=== PATIENT | male | born 1985 | race Caucasian/White ===

== ENCOUNTER 2017-11-02 03:14 | Emergency (ER) | payer OTHER | END 2017-11-02 03:56 | disposition home or self-care (01) | LOC: M ED 03:14 | DX: S80.222A Blister (nonthermal), left knee, initial encounter (principal); X58.XXXA Exposure to other specified factors, initial encounter; Y92.9 Unspecified place or not applicable; Y93.9 Activity, unspecified; Y99.9 Unspecified external cause status; Z79.899 Other long term (current) drug therapy | CPT/HCPCS: 99282 ==

== ENCOUNTER → 2019-10-03 | Outpatient (CLI) | payer OTHER ==
[~2019-10-03] MED LIST: ZYRT10CA PO
== END ==
LOC: M LABSMTC 12:33
PROVIDERS: ATTEND Family Medicine
DX: Z03.818 Encounter for observation for suspected exposure to other biological agents ruled out (principal); Z11.59 Encounter for screening for other viral diseases
CPT/HCPCS: C9803; U0003

== ENCOUNTER 2020-06-30 01:30 | Emergency (ER) | payer OTHER ==
[~2020-06-30] VITALS: Ht 167.6 cm; Wt 91.0 kg
--- OUTSIDE RECORDS SUMMARY | 2020-06-30 01:38 | CCD | Continuity of Care Document ---
Author Sy Conway M.D. Organization Unknown Address [address] [place] [address] Phone [phone] Problems Active Problems Provider Date Allergic rhinitis Irene Cueva RPA-[place] Onset: 2012 Social History Type Date Description Comments Sex Unknown Tobacco Use Start: Unknown Patient has never smoked Allergies, Adverse Reactions, Alerts Description No Known Drug Allergies Medications Active Medications SIG Qnty Indications Ordering Provide r Date Zyrtec Allergy 10mg Tablets take 1 by mouth daily....OTC 90tabs Juan Beyer D.O., FAAFP 01/22/2015 Flonase Allergy Relief 50mcg/Act Suspension 2 sprays each nares every day Unknown Saline Nasal [place] 0.65% Solution 2 spray each nostril twice a day OTC Unknown 0 000 Immunizations Description No Information Available Vital Signs Date Vital Result Comment 05/25/2020 1:47pm BP Systolic 124 mmHg BP Diastolic 80 mmHg Body Temperature 98.3 F Heart Rate 76 /min Respiratory Rate 14 /min Height 66 inches 5'6" Weight 210.00 lb [place] Body Weight 142 lb BMI (Body Mass Index) 33.9 kg/m2 O2 % BldC Oximetry 98 % 10/02/2019 11:37am BP Systolic 130 mmHg BP Diastolic 88 mmHg Body Temperature 98.0 F Heart Rate 92 /min Respiratory Rate 16 /min Height 66 inches 5'6" Weight 203.00 lb [place] Body Weight 142 lb BMI (Body Mass Index) 32.8 kg/m2 O2 % BldC Oximetry 99 % Results Test Acquired Date Facility Test Result H/L Range Note Metabolic Panel (14), Comprehensive 05/25/2020 [facility] [place] Glucose 91 mg/dL 65-99 BUN 13 mg/dL 6-20 Creatinine 1.07 mg/dL 0.76-1.27 eGFR If NonAfricn Am 90 mL/min/1.73 >59 eGFR If Africn Am 104 mL/min/1.73 >59 BUN/Creatinine Ratio 12 9-20 Sodium 143 mmol/L 134-144 Potassium 4.5 mmol/L 3.5-5.2 Chloride 106 mmol/L 96-106 Carbon Dioxide, Total 23 mmol/L 20-29 Calcium 9.9 mg/dL 8.7-10.2 Protein, Total 7.2 g/dL 6.0-8.5 Albumin 4.8 g/dL 4.0-5.0 Globulin, Total 2.4 g/dL 1.5-4.5 A/G Ratio 2.0 1.2-2.2 Bilirubin, Total 0.5 mg/dL 0.0-1.2 Alkaline Phosphatase 73 IU/L 39-117 Ast (Sgot) 52 IU/L High 0-40 Alt (SGPT) 119 IU/L High 0-44 Lipid Panel 05/25/2020 [facility] [place] Cholesterol, Total 189 mg/dL 100-199 Triglycerides 288 mg/dL High 0-149 HDL Cholesterol 32 mg/dL Low >39 VLDL Cholesterol [place] 50 mg/dL High 5-40 LDL Chol Calc (Nih) 107 mg/dL High 0-99 Comment: TNP Procedures Description No Information Available Medical Devices Description No Information Available Encounters Type Date Location Provider Dx Diagnosis Office Visit 05/25/2020 2:00p [place] [facility] Syed Saunders M. D. Z00.00 Encntr for general adult medical exam w/o abnormal findings R73.01 Impaired fasting glucose R74.01 Elevation of levels of liver transaminase levels J30.9 Allergic rhinitis, unspecifi ed Assessments Date Code Description Provider 05/25/2020 Z00.00 Encounter for genera l adult medical examination without abnormal findings Syed Saunders M.D. 05/25/2020 R73.01 Impaired fasting glucose Syed Ledesma M.D. 05/25/2020 R74.01 Elevation of levels of liver tra nsaminase levels Syed Saunders M.D. 05/25/2020 J30.9 Allergic rhinitis, unspecified M Syed mccloud M.D. Plan of Treatment Future Appointment(s):* 12/01/2020 1:00 pm - Syed Saunders M.D. at [facility] Functional Status Description No Information Available Mental Status Description No Information Available Referrals Description No Information Available
--- OUTSIDE RECORDS SUMMARY | 2020-06-30 01:39 | CCD ---
Author Organization Unknown Address [address] [place] [address] Phone [phone] Care Team Providers Care Core Drier Name Role Phone Refugio Olivera Unavailable Unavailable Allergies None recorded. Medications None recorded. Problems None recorded. Procedures None recorded. Results Lab Results Date Name Specimen Result Interpretation Description Value Range Status Address 03/30/2020 COVID-19 RNA (SARS-CoV-2), QL, scheduler maintenance-PCR, Respiratory Specimen Nasopharyngeal Normal Sars Cov 2 RNA not detected not detected Fi nal [facility] ([facility]): [address] 03/16/2020 COVID-19 RNA (SARS-CoV-2), QL, scheduler maintenance-PCR, Respiratory Specimen Nasopharyngeal Normal Sars Cov 2 RNA not detected not detected Fi nal [facility] ([facility]): [address] 03/02/2020 COVID-19 RNA (SARS-CoV-2), QL, scheduler maintenance-PCR, Respirat ory Specimen Normal Sars Cov 2 RNA not detected not detected Final Asso ciated Clinical Labs ([facility]): [address] Past Encounters 03/30/2020 Exposure to SARS-CoV-2 Refugio D Olivera, RPA-C: [address], [place] [address], Ph. 03/16/2020 Exposure to SARS-CoV-2 Refugio D Olivera, RPA-C: [address], [address], [place] [address], Ph. 03/02/2020 Exposure to SARS-CoV-2 Refugio D Olivera, RPA-C: [address], [address], [place] [address], Ph. Social History None recorded. Vaccine List None recorded. Plan of Care Reminders Provider Appointments None recorded. Lab None recorded. Referral None recorded. Procedures None recorded. Surgeries None recorded. Imaging None recorded. Vitals None recorded.
--- OUTSIDE RECORDS SUMMARY | 2020-06-30 01:39 | CCD | Continuity of Care Document ---
Author Author Sy SAUNDERS M.D. Organization Unknown Address [address] [place] [id number] Phone [phone] Problems Active Problems Provider Date Allergic rhinitis Irene Cueva RPA-C Onset: 2012 Social History Type Date Description [...] each nares every day Unknown Saline Nasal [place] 0.65% Solution 2 spray each nostril twice a day OTC Unknown 0 000 Immunizations Description No Information Available Vital Signs Date Vital Result Comment 05/25/2020 1:47pm BP Systolic 124 mmHg BP Diastolic 80 mmHg Body Temperature 98.3 F Heart Rate 76 /min Respiratory Rate 14 /min Height 66 inches 5'6" Weight 210.00 lb [place] Body Weight 142 lb BMI (Body Mass Index) 33.9 kg/m2 O2 % BldC Oximetry 98 % 10/02/2019 11:37am BP Systolic 130 mmHg BP Diastolic 88 mmHg Body Temperature 98.0 F Heart Rate 92 /min Respiratory Rate 16 /min Height 66 inches 5'6" Weight 203.00 lb [place] Body Weight 142 lb BMI (Body Mass Index) 32.8 kg/m2 O2 % BldC Oximetry 99 % Results Description No Information Available Procedures Description No Information Available Medical Devices Description No Information Available Encounters Type Date Location Provider Dx Diagnosis Office Visit 05/25/2020 2:00p [place] [facility] Syed Saunders M. D. Z00.00 Encntr [...] M Syed mccloud M.D. Plan of Treatment No Information Available Functional Status Description No Information Available Mental Status Description No Information Available Referrals Description No Information Available
--- OUTSIDE RECORDS SUMMARY | 2020-06-30 01:39 | CCD ---
Author Author [facility] Organization [facility] Address Unknown Phone Unavailable Care Team Providers Care Microsoft Exchange Administrator Name Role Phone OLIVERA, QUINTON REFUGIO RPA-C Unavailable Unavailable OLIVERA, QUINTON REFUGIO RPA-C Unavailable Unavailable OLIVERA, QUINTON REFUGIO RPA-C Unavailable Unavailable OLIVERA, QUINTON REFUGIO RPA-C Unavailable Unavailable OLIVERA, QUINTON REFUGIO RPA-C Unavailable Unavailable OLIVERA, QUINTON REFUGIO RPA-C Unavailable Unavailable OLIVERA, QUINTON REFUGIO RPA-C Unavailable Unavailable OLIVERA, QUINTON REFUGIO RPA-C Unavailable Unavailable OLIVERA, QUINTON REFUGIO RPA-C Unavailable Unavailable OLIVERA, QUINTON REFUGIO RPA-C Unavailable Unavailable OLIVERA, QUINTON REFUGIO RPA-C Unavailable Unavailable OLIVERA, QUINTON REFUGIO RPA-C Unavailable Unavailable OLIVERA, QUINTON REFUGIO RPA-C Unavailable Unavailable OLIVERA, QUINTON REFUGIO RPA-C Unavailable Unavailable OLIVERA, QUINTON REFUGIO RPA-C Unavailable Unavailable OLIVERA, QUINTON REFUGIO RPA-C Unavailable Unavailable OLIVERA, QUINTON REFUGIO RPA-C Unavailable Unavailable OLIVERA, QUINTON REFUGIO RPA-C Unavailable Unavailable OLIVERA, QUINTON REFUGIO RPA-C Unavailable Unavailable OLIVERA, QUINTON RFEUGIO RPA-C Unavailable Unavailable OLIVERA, QUINTON REFUGIO RPA-C Unavailable Unavailable OLIVERA, QUINTON REFUGIO RPA-C Unavailable Unavailable OLIVERA, QUINTON REFUGIO RPA-C Unavailable Unavailable OLIVERA, QUINTON REFUGIO RPA-C Unavailable Unavailable OLIVERA, QUINTON REFUGIO RPA-C Unavailable Unavailable OLIVERA, QUINTON REFUGIO RPA-C Unavailable Unavailable OLIVERA, QUINTON REFUGIO RPA-C Unavailable Unavailable OLIVERA, QUINTON REFUGIO RPA-C Unavailable Unavailable OLIVERA, QUINTON REFUGIO RPA-C Unavailable Unavailable OLIVERA, QUINTON REFUGIO RPA-C Unavailable Unavailable OLIVERA, QUINTON REFUGIO RPA-C Unavailable Unavailable OLIVERA, QUINTON REFUGIO RPA-C Unavailable Unavailable OLIVERA, QUINTON REFUGIO RPA-C Unavailable Unavailable OLIVERA, QUINTON REFUGIO RPA-C Unavailable Unavailable OLIVERA, QUINTON REFUGIO RPA-C Unavailable Unavailable OLIVERA, QUINTON REFUGIO RPA-C Unavailable Unavailable OLIVERA, QUINTON REFUGIO RPA-C Unavailable Unavailable OLIVERA, QUINTON REFUGIO RPA-C Unavailable Unavailable OLIVERA, QUINTON REFUGIO RPA-C Unavailable Unavailable Herve YUN MD Unavailable Unavailable Herve YUN MD Unavailable Unavailable Herve YUN MD Unavailable Unavailable Herve YUN MD Unavailable Unavailable Herve YUN MD Unavailable Unavailable Herve YUN MD Unavailable Unavailable Herve YUN MD Unavailable Unavailable Herve YUN MD Unavailable Unavailable Herve YUN MD Unavailable Unavailable Herve YUN MD Unavailable Unavailable Herve YUN MD Unavailable Unavailable Herve YUN MD Unavailable Unavailable Herve YUN MD Unavailable Unavailable Herve YUN MD Unavailable Unavailable Herve YUN MD Unavailable Unavailable Herve YUN MD Unavailable Unavailable Herve YUN MD Unavailable Unavailable Herve YUN MD Unavailable Unavailable Herve YUN MD Unavailable Unavailable Herve YUN MD Unavailable Unavailable Herve YUN MD Unavailable Unavailable Herve YUN MD Unavailable Unavailable Herve YUN MD Unavailable Unavailable Herve YUN MD Unavailable Unavailable Herve YUN MD Unavailable Unavailable Herve YUN MD Unavailable Unavailable Herve YUN MD Unavailable Unavailable Herve YUN MD Unavailable Unavailable Herve YUN MD Unavailable Unavailable Herve YUN MD Unavailable Unavailable Herve YUN MD Unavailable Unavailable Herve YUN MD Unavailable Unavailable Herve YUN MD Unavailable Unavailable Herve YUN MD Unavailable Unavailable Herve YUN MD Unavailable Unavailable Herve YUN MD Unavailable Unavailable Herve YUN MD Unavailable Unavailable Herve YUN MD Unavailable Unavailable Herve YUN MD Unavailable Unavailable Herve YUN MD Unavailable Unavailable Herve YUN MD Unavailable Unavailable Herve YUN MD Unavailable Unavailable Herve YUN MD Unavailable Unavailable Herve YUN MD Unavailable Unavailable Herve YUN MD Unavailable Unavailable Herve YUN MD Unavailable Unavailable Herve YUN MD Unavailable Unavailable Herve YUN MD Unavailable Unavailable Herve YUN MD Unavailable Unavailable Herve YUN MD Unavailable Unavailable Herve YUN MD Unavailable Unavailable Herve YUN MD Unavailable Unavailable Herve YUN MD Unavailable Unavailable Herve YUN MD Unavailable Unavailable Herve YUN MD Unavailable Unavailable Herve YUN MD Unavailable Unavailable Herve YUN MD Unavailable Unavailable Herve YUN MD Unavailable Unavailable Herve YUN MD Unavailable Unavailable Herve YUN MD Unavailable Unavailable Herve YUN MD Unavailable Unavailable Herve YUN MD Unavailable Unavailable Herve YUN MD Unavailable Unavailable Herve YUN MD Unavailable Unavailable Herve YUN MD Unavailable Unavailable Herve YUN MD Unavailable Unavailable Herve YUN MD Unavailable Unavailable Herve YUN MD Unavailable Unavailable Herve YUN MD Unavailable Unavailable Herve YUN MD Unavailable Unavailable Herve YUN MD Unavailable Unavailable Herve YUN MD Unavailable Unavailable Herve YUN MD Unavailable Unavailable Herve YUN MD Unavailable Unavailable Herve YUN MD Unavailable Unavailable Herve YUN MD Unavailable Unavailable Whitney, D Vladimir PA Unavailable Unavailable Whitney, D Vladimir PA Unavailable Unavailable Whitney, D Vladimir PA Unavailable Unavailable Whitney, D Vladimir PA Unavailable Unavailable Whitney, D Vladimir PA Unavailable Unavailable Whitney, D Vladimir PA Unavailable Unavailable Whitney, D Vladimir PA Unavailable Unavailable Whitney, D Vladimir PA Unavailable Unavailable Whitney, D Vladimir PA Unavailable Unavailable Whitney, D Vladimir PA Unavailable Unavailable Whitney, D Vladimir PA Unavailable Unavailable Whitney, D Vladimir PA Unavailable Unavailable Whitney, D Vladimir PA Unavailable Unavailable Whitney, D Vladimir PA Unavailable Unavailable Whitney, D Vladimir PA Unavailable Unavailable Whitney, D Vladimir PA Unavailable Unavailable Whitney, D Vladimir PA Unavailable Unavailable Whitney, D Vladimir PA Unavailable Unavailable Whitney, D Vladimir PA Unavailable Unavailable Whitney, D Vladimir PA Unavailable Unavailable Whitney, D Vladimir PA Unavailable Unavailable Whitney, D Vladimir PA Unavailable Unavailable Whitney, D Vladimir PA Unavailable Unavailable Whitney, D Vladimir PA Unavailable Unavailable Whitney, D Vladimir PA Unavailable Unavailable Whitney, D Vladimir PA Unavailable Unavailable Whitney, D Vladimir PA Unavailable Unavailable Whitney, D Vladimir PA Unavailable Unavailable Whitney, D Vladimir PA Unavailable Unavailable Whitney, D Vladimir PA Unavailable Unavailable Whitney, D Vladimir PA Unavailable Unavailable Whitney, D Vladimir PA Unavailable Unavailable Whitney, D Vladimir PA Unavailable Unavailable Whitney, D Vladimir PA Unavailable Unavailable Whitney, D Vladimir PA Unavailable Unavailable Whitney, D Vladimir PA Unavailable Unavailable Whitney, D Vladimir PA Unavailable Unavailable Whitney, D Vladimir PA Unavailable Unavailable Whitney, D Vladimir PA Unavailable Unavailable Whitney, D Vladimir PA Unavailable Unavailable Whitney, D Vladimir PA Unavailable Unavailable Whitney, D Vladimir PA Unavailable Unavailable Whitney, D Vladimir PA Unavailable Unavailable Whitney, D Vladimir PA Unavailable Unavailable Whitney, D Vladimir PA Unavailable Unavailable Whitney, D Vladimir PA Unavailable Unavailable Whitney, D Vladimir PA Unavailable Unavailable Whitney, D Vladimir PA Unavailable Unavailable Whitney, D Vladimir PA Unavailable Unavailable Whitney, D Vladimir PA Unavailable Unavailable Whitney, D Vladimir PA Unavailable Unavailable Whitney, D Vladimir PA Unavailable Unavailable Whitney, D Vladimir PA Unavailable Unavailable Whitney, D Vladimir PA Unavailable Unavailable Whitney, D Vladimir PA Unavailable Unavailable Whitney, D Vladimir PA Unavailable Unavailable Whitney, D Vladimir PA Unavailable Unavailable Whitney, D Vladimir PA Unavailable Unavailable Whitney, D Vladimir PA Unavailable Unavailable Whitney, D Vladimir PA Unavailable Unavailable Whitney, D Vladimir PA Unavailable Unavailable Whitney, D Vladimir PA Unavailable Unavailable Whitney, D Vladimir PA Unavailable Unavailable Enedina Meyer MD Unavailable Unavailable Enedina Meyer MD Unavailable Unavailable Enedina Meyer MD Unavailable Unavailable Enedina Meyer MD Unavailable Unavailable Enedina Meyer MD Unavailable Unavailable Enedina Meyer MD Unavailable Unavailable Enedina Meyer MD Unavailable Unavailable Enedina Meyer MD Unavailable Unavailable Enedina Meyer MD Unavailable Unavailable Enedina Meyer MD Unavailable Unavailable Enedina Meyer MD Unavailable Unavailable Enedina Meyer MD Unavailable Unavailable Enedina Meyer MD Unavailable Unavailable Enedina Meyer MD Unavailable Unavailable Enedina Meyer MD Unavailable Unavailable Enedina Meyer MD Unavailable Unavailable Enedina Meyer MD Unavailable Unavailable Enedina Meyer MD Unavailable Unavailable Enedina Meyer MD Unavailable Unavailable Enedina Meyer MD Unavailable Unavailable Enedina Meyer MD Unavailable Unavailable Enedina Meyer MD Unavailable Unavailable Enedina Meyer MD Unavailable Unavailable Enedina Meyer MD Unavailable Unavailable Enedina Meyer MD Unavailable Unavailable Enedina Meyer MD Unavailable Unavailable Enedina Meyer MD Unavailable Unavailable Enedina Meyer MD Unavailable Unavailable Enedina Meyer MD Unavailable Unavailable Enedina Meyer MD Unavailable Unavailable Enedina Meyer MD Unavailable Unavailable Enedina Meyer MD Unavailable Unavailable Enedina Meyer MD Unavailable Unavailable Enedina Meyer MD Unavailable Unavailable Enedina Meyer MD Unavailable Unavailable Enedina Meyer MD Unavailable Unavailable Enedina Meyer MD Unavailable Unavailable Enedina Meyer MD Unavailable Unavailable Enedina Meyer MD Unavailable Unavailable Enedina Meyer MD Unavailable Unavailable Enedina Meyer MD Unavailable Unavailable Enedina Meyer MD Unavailable Unavailable Enedina Meyer MD Unavailable Unavailable Enedina Meyer MD Unavailable Unavailable Enedina Meyer MD Unavailable Unavailable Enedina Meyer MD Unavailable Unavailable Enedina Meyer MD Unavailable Unavailable Enedina Meyer MD Unavailable Unavailable Enedina Meyer MD Unavailable Unavailable Enedina Meyer MD Unavailable Unavailable Enedina Meyer MD Unavailable Unavailable Enedina Meyer MD Unavailable Unavailable Meyer, Enedina Lynch MD Unavailable Unavailable Enedina Meyer MD Unavailable Unavailable MeyerEnedina MD Unavailable Unavailable Enedina Meyer MD Unavailable Unavailable Enedina Meyer MD Unavailable Unavailable Enedina Meyer MD Unavailable Unavailable Enedina Meyer MD Unavailable Unavailable Enedina Meyer MD Unavailable Unavailable Enedina Meyer MD Unavailable Unavailable Enedina Meyer MD Unavailable Unavailable Enedina Meyer MD Unavailable Unavailable Enedina Meyer MD Unavailable Unavailable Enedina Meyer MD Unavailable Unavailable Enedina Meyer MD Unavailable Unavailable Enedina Meyer MD Unavailable Unavailable Enedina Meyer MD Unavailable Unavailable Enedina Meyer MD Unavailable Unavailable Enedina Meyer MD Unavailable Unavailable Enedina Meyer MD Unavailable Unavailable Enedina Meyer MD Unavailable Unavailable Enedina Meyer MD Unavailable Unavailable Enedina Meyer MD Unavailable Unavailable Enedina Meyer MD Unavailable Unavailable Enedina Meyer MD Unavailable Unavailable Enedina Meyer MD Unavailable Unavailable Enedina Meyer MD Unavailable Unavailable Enedina Meyer MD Unavailable Unavailable Enedina Meyer MD Unavailable Unavailable Enedina Meyer MD Unavailable Unavailable Enedina Meyer MD Unavailable Unavailable Enedina Meyer MD Unavailable Unavailable Enedina Meyer MD Unavailable Unavailable Enedina Meyer MD Unavailable Unavailable Enedina Meyer MD Unavailable Unavailable Enedina Meyer MD Unavailable Unavailable Enedina Meyer MD Unavailable Unavailable Enedina Meyer MD Unavailable Unavailable Verbeck Jr, Uinta Raad PA Unavailable Unavailable Verbeck Jr, Uinta Raad PA Unavailable Unavailable Verbeck Jr, Uinta Raad PA Unavailable Unavailable Verbeck Jr, Uinta Raad PA Unavailable Unavailable Verbeck Jr, Rey Raad PA Unavailable Unavailable Verbeck Jr, Uinta Raad PA Unavailable Unavailable Verbeck Jr, Uinta Raad PA Unavailable Unavailable Verbeck Jr, Uinta Raad PA Unavailable Unavailable Verbeck Jr, Uinta Raad PA Unavailable Unavailable Verbeck Jr, Uinta Raad PA Unavailable Unavailable Verbeck Jr, Uinta Raad PA Unavailable Unavailable Verbeck Jr, Uinta Raad PA Unavailable Unavailable Verbeck Jr, Uinta Raad PA Unavailable Unavailable Verbeck Jr, Rey Raad PA Unavailable Unavailable Verbeck Jr, Uinta Raad PA Unavailable Unavailable Verbeck Jr, Rey Raad PA Unavailable Unavailable Verbeck Jr, Rey Raad PA Unavailable Unavailable Verbeck Jr, Rey Raad PA Unavailable Unavailable Verbeck Jr, Uinta Raad PA Unavailable Unavailable Verbeck Jr, Uinta Raad PA Unavailable Unavailable Verbeck Jr, Rey Raad PA Unavailable Unavailable Verbeck Jr, Uinta Raad PA Unavailable Unavailable Verbeck Jr, Uinta Raad PA Unavailable Unavailable Verbeck Jr, Uinta Raad PA Unavailable Unavailable Verbeck Jr, Uinta Raad PA Unavailable Unavailable Verbeck Jr, Uinta Raad PA Unavailable Unavailable Verbeck Jr, Uinta Raad PA Unavailable Unavailable Verbeck Jr, Uinta Raad PA Unavailable Unavailable Verbeck Jr, Uinta Raad PA Unavailable Unavailable Verbeck Jr, Uinta Raad PA Unavailable Unavailable Verbeck Jr, Uinta Raad PA Unavailable Unavailable Verbeck Jr, Uinta Raad PA Unavailable Unavailable Verbeck Jr, Uinta Raad PA Unavailable Unavailable Verbeck Jr, Uinta Raad PA Unavailable Unavailable Re-disclosure Warning The records that you are about to access may contain information from federally-assisted alcohol or drug abuse programs. If such information is present, then the following federally mandated warning applies: This information has been disclosed to you from records protected by federal confidentiality rules (42 CFR part 2). The federal rules prohibit you from making any further disclosure of this information unless further disclosure is expressly permitted by the written consent of the person to whom it pertains or as otherwise permitted by 42 CFR part 2. A general authorization for the release of medical or other information is NOT sufficient for this purpose. The Federal rules restrict any use of the information to criminally investigate or prosecute any alcohol or drug abuse patient.The records that you are about to access may contain highly sensitive health information, the redisclosure of which is protected by Article 27-F of the [place] State Public Health law. If you continue you may have access to information: Regarding HIV / AIDS; Provided by facilities licensed or operated by the [facility] Office of Mental Health; or Provided by the [facility] Office for People With Developmental Disabilities. If such information is present, then the following [facility] mandated warning applies: This information has been disclosed to you from confidential records which are protected by state law. State law prohibits you from making any further disclosure of this information without the specific written consent of the person to whom it pertains, or as otherwise permitted by law. Any unauthorized further disclosure in violation of state law may result in a fine or fdc sentence or both. A general authorization for the release of medical or other information is NOT sufficient authorization for further disc losure. Allergies and Adverse Reactions Type Description Substance Reaction Status Data Source(s ) Allergy to substance Allergy to substance Allergy to substance [facility] ([facility]) Allergy to substance Allergy to substance Allergy to substance [facility] ([facility]) Allergy to substance Allergy to substance Allergy to substance [facility] ([facility]) Family History Family Member Name Family Member Gender Family Member Status Date o f Status Description Data Source(s) Unknown Unknown Problem [facility] ([facility] Unknown Unknown Problem [facility] ([facility]) mother/father Encounters Encounter Providers Location Date Indications Data Source(s ) Outpatient Attender: SYED YUN MD [place] [facility] 01:00:00 PM EST [facility] ([facility] Refugio Olivera RPA-C: [address], [place] [address], Ph. Attender: REFUGIO SCHULTZ [facility] Medical 03/30/2020 12:00:00 AM EST [facility] ([facility]) TORY McmahanC: [address], [place] [address], Ph. Attender: REFUGIO SCHULTZ [facility] Medical 03/30/2020 12:00:00 AM EST [facility] ([facility]) Refugio Olivera RPA-C: [address], [place] [address], Ph. Attender: REFUGIO SCHULTZ [facility] Medical 03/16/2020 12:00:00 AM EST [facility] ([facility]) Refugio Olivera, RPA-C: [address], [place] [address], Ph. Attender: REFUGIO OLIVERA RPA-C [facility] Medical 03/16/2020 12:00:00 AM EST [facility] ([facility]) Refugio Olivera RPA-C: [address], [place] [address], Ph. Attender: REFUGIO OLIVERA RPA-C [facility] Medical 03/16/2020 12:00:00 AM EST [facility] ([facility]) Refugio Olivera RPA-C: [address], [place] [address], Ph. Attender: REFUGIO OLIVERA RPA-C [facility] Medical 03/02/2020 12:00:00 AM EDT [facility] ([facility]) Refugio Olivera RPA-C: [address], [place] [address], Ph. Attender: REFUGIO OLIVERA RPA-C [facility] Medical 03/02/2020 12:00:00 AM EDT [facility] ([facility]) Refugio Olivera, RPA-C: [address], [place] [address], Ph. Attender: REFUGIO OLIVERA RPA-C [facility] Medical 03/02/2020 12:00:00 AM EDT [facility] ([facility]) Outpatient Attender: Syed Meyer MD CT 02/18/2020 02:59:[address] [facility] Outpatient Attender: Syed Meyer MD CT 01/31/2020 05:06:[address] [facility] Outpatient Attender: Syed Meyer MD CT 01/31/2020 10:20:[address] [facility] Outpatient Attender: Syed Meyer MD CT 01/31/2020 10:20:[address] [facility] Outpatient Attender: Vladimir SCHILLING [place] [facility] 11:30:00 AM EDT MED[facility] ([facility] Outpatient Attender: Raad Mays Jr [place] [facility] 03:00:00 PM EST [facility] ([facility] Medications Medication Brand Name Start Date Product Form Dose Route Admi nistrative Instructions Pharmacy Instructions Status Indications Reaction Description Data Source(s) Cefuroxime 500 MG Oral Tablet Cefuroxime Axetil 05/07/2019 12:00:00 A M EST ORAL completed [facility] ([facility] Azelastine HCL (Nasal) Azelastine HCL (Nasal) 05/07/2019 12:00:[address] active [facility] ([facility] Insurance Providers Payer name Policy type / Coverage type Policy ID Covered libertarian ID Covered libertarian's relationship to aparicio Policy Aparicio Plan Information [facility] [id number] SP [id number] [employer] [id number] SP [id number] [facility] MEDICAL CLAIMS [id number] SP [id number] Lifetime Benefit Solution Commercial [id number] Self [id number] Lifetime Benefit Solution Commercial [id number] Self [id number] Lifetime Benefit Solution Commercial Self Problems, Conditions, and Diagnoses Code Display Name Description Problem Type Effective Dates Data Source(s) V01.79 Contact with and (suspected) exposure to other viral communicable diseases Contact with and (suspected) exposure to other viral communicable diseases 01/31/2020 10:19:[address] [facility] Results ID Date Data Source [id number] 05/25/2020 02:06:00 PM EST [facility] ([facility] Name Value Range Interpretation Code Description Data Annamaria rce(s) Supporting Document(s) Cholesterol [Mass/volume] in Serum or Plasma 189 mg/dL 100-199 [facility] ([facility] Triglyceride [Mass/volume] in Serum or Plasma 288 mg/dL 0-149 Above high normal [facility] ([facility] Cholesterol in HDL [Mass/volume] in Serum or Plasma 32 mg/dL Below low normal [facility] ([facility] Laboratory test finding (navigational concept) 50 mg/dL 5-40 Above high normal [facility] ([facility] Laboratory test finding (navigational concept) 107 mg/dL 0-99 Above high normal [facility] ([facility] Comment: Laboratory test result [facility] ([facility] ID Date Data Source [id number] 05/25/2020 02:06:00 PM EST [facility] ([facility] Name Value Range Interpretation Code Description Data Annamaria rce(s) Supporting Document(s) Glucose [Mass/volume] in Serum or Plasma 91 mg/dL 65-99 [facility] ([facility] BUN 13 mg/dL 6-20 [facility] ([facility] Creatinine [Mass/volume] in Serum or Plasma 1.07 mg/dL 0.76-1.27 [facility] ([facility] eGFR If NonAfricn Am 90 mL/min/1.73 [facility] ([facility] eGFR If Africn Am 104 mL/min/1.73 ME DENT ([facility] Sodium [Moles/volume] in Serum or Plasma 143 mmol/L 134-144 [facility] ([facility] Urea nitrogen/Creatinine [Mass Ratio] in Serum or Plasma 12 9 -20 [facility] ([facility] Potassium [Moles/volume] in Serum or Plasma 4.5 mmol/L 3.5-5.2 [facility] ([facility] Chloride [Moles/volume] in Serum or Plasma 106 mmol/L 96-106 [facility] ([facility] Calcium [Mass/volume] in Serum or Plasma 9.9 mg/dL 8.7-10.2 [facility] ([facility] Carbon dioxide, total [Moles/volume] in Serum or Plasma 23 mmol/L 20 -29 [facility] ([facility] Protein [Mass/volume] in Serum or Plasma 7.2 g/dL 6.0-8.5 [facility] ([facility] Globulin [Mass/volume] in Serum by calculation 2.4 g/dL 1.5-4.5 [facility] ([facility] Albumin [Mass/volume] in Serum or Plasma 4.8 g/dL 4.0-5.0 [facility] ([facility] Albumin/Globulin [Mass Ratio] in Serum or Plasma 2.0 1.2-2.2 [facility] ([facility] Alkaline phosphatase [Enzymatic activity/volume] in Serum or Plasma 73 IU/L 39-117 [facility] Bilirubin.total [Mass/volume] in Serum or Plasma 0.5 mg/dL 0.0-1.2 [facility] ([facility] Aspartate aminotransferase [Enzymatic activity/volume] in Serum or Plasma 52 IU/L 0-40 Above high normal [facility] ([facility] Alanine aminotransferase [Enzymatic activity/volume] i n Serum or Plasma 119 IU/L 0-44 Above high normal [facility] ([facility] ID Date Data Source [id number] 03/30/2020 02:00:00 PM EST J[facility] ([facility]) Name Value Range Interpretation Code Description Data Annamaria rce(s) Supporting Document(s) SARS-CoV-2 (COVID-19) RNA [Presence] in Respiratory specimen by ALECIA with probe detection not detected not detected normal Sars Cov 2 RNA [facility] ([facility]) ID Date Data Source [id number] 03/16/2020 02:00:00 PM EST [facility] ([facility]) Name Value Range Interpretation Code Description Data Annamaria rce(s) Supporting Document(s) SARS-CoV-2 (COVID-19) RNA [Presence] in Respiratory specimen by ALECIA with probe detection not detected not detected normal Sars Cov 2 RNA [place] ([facility]) ID Date Data Source [id number] 03/16/2020 02:00:00 PM EST [place] ([facility]) Name Value Range Interpretation Code Description Data Annamaria rce(s) Supporting Document(s) SARS coronavirus 2 RNA [Presence] in Res piratory specimen by ALECIA with probe detection not detected not detected normal Sars Cov 2 RNA [place] ([facility]) ID Date Data Source [id number] 03/16/2020 02:00:00 PM EST [place] ([facility]) Name Value Range Interpretation Code Description Data Annamaria rce(s) Supporting Document(s) SARS coronavirus 2 RNA [Presence] in Res piratory specimen by ALECIA with probe detection not detected not detected normal Sars Cov 2 RNA [facility]) ID Date Data Source [id number] 03/02/2020 02:10:00 PM EDT [facility]) Name Value Range Interpretation Code Description Data Annamaria rce(s) Supporting Document(s) SARS-CoV-2 (COVID-19) RNA [Presence] in Respiratory specimen by ALECIA with probe detection not detected not detected normal Sars Cov 2 RNA [facility]) ID Date Data Source [id number] 03/02/2020 02:10:00 PM EDT [facility]) Name Value Range Interpretation Code Description Data Annamaria rce(s) Supporting Document(s) SARS coronavirus 2 RNA [Presence] in Res piratory specimen by ALECIA with probe detection not detected not detected normal Sars Cov 2 RNA [place] ([facility]) ID Date Data Source [id number] 03/02/2020 02:10:00 PM EDT [facility]) Name Value Range Interpretation Code Description Data Annamaria rce(s) Supporting Document(s) SARS coronavirus 2 RNA [Presence] in Res piratory specimen by ALECIA with probe detection not detected not detected normal Sars Cov 2 RNA [place] ([facility]) ID Date Data Source [id number] 03/02/2020 02:10:00 PM EDT [facility] Name Value Range Interpretation Code Description Data Annamaria rce(s) Supporting Document(s) SARS-COV-2 RNA RESP QL ALECIA+PROBE [facility] This lab was ordered by [facility] and reported by [facility]. ID Date Data Source [id number] 02/17/2020 02:15:[address] [facility] In-House Lab TestsDate/Time Collect ed: February 17, 2020 2:15 PMDate/Time Received: February 17, 2020 2:15 PMComments: COVID-19 testing done in office taken from the right nostril without difficulty. Patient tolerated it well. Serene Jett MA, February 17, 2020 2:05 PMAssessment & Plan Orders:Specimen Handling [[id number]] Name Value Range Interpretation Code Description Data Annamaria rce(s) Supporting Document(s) ID Date Data Source [id number] 02/17/2020 12:00:00 AM EDT [facility] Name Value Range Interpretation Code Description Data Annamaria rce(s) Supporting Document(s) SARS-COV-2 RNA RESP QL ALECIA+PROBE [facility] This lab was ordered by [facility] and reported by [facility]. ID Date Data Source [id number] 01/31/2020 02:00:00 PM EDT [facility] Name Value Range Interpretation Code Description Data Annamaria rce(s) Supporting Document(s) SARS-COV-2 RNA RESP QL ALECIA+PROBE [facility] This lab was ordered by [facility] and reported by [facility]. ID Date Data Source [id number] 10/03/2019 03:55:00 PM EDT [facility] Name Value Range Interpretation Code Description Data Annamaria rce(s) Supporting Document(s) SARS CORONAVIRUS 2 RNA [facility] This lab was ordered by [facility] and reported by [facility]. ID Date Data Source [id number] 10/03/2019 02:24:00 PM EDT [facility] ([facility] Name Value Range Interpretation Code Description Data Annamaria rce(s) Supporting Document(s) Laboratory test finding (navigational concept) Laboratory test result [facility] ([facility] Testing was performed using the stephania(R) SARS-CoV-2 test. This test was developed and its performance characteristics determined by [facility]. This test has not been FDA cleared or approved. This test has been authorized by FDA under an Emergency Use Authorization (EUA). This test is only authorized for the duration of time the declaration that circumstances exist justifying the authorization of the emergency use of in vitro diagnostic tests for detection of SARS-CoV-2 virus and/or diagnosis of COVID-19 infection under section 564(b)(1) of the Act, 21 U.S.C. 360bbb-3(b)(1), unless the authorization is terminated or revoked sooner. When diagnostic testing is negative, the possibility of a false negative result should be considered in the context of a patient's recent exposures and the presence of clinical signs and symptoms consistent with COVID-19. An individual without symptoms of COVID-19 and who is not shedding SARS-CoV-2 virus would expect to have a negative (not detected) result in this assay. Performed at: [facility] [id number] [employer] Delivery Consultant: Hansa Mccann MD, Phone: [phone] Not Detected Procedure Vital Signs ID Date Data Source UNK Name Value Range Interpretation Code Description Data Source(s) Oxygen saturation in Arterial blood by Pulse oximetry 98 % 98 % [facility] ([facility] Body mass index (BMI) [Ratio] 33.9 kg/m2 33.9 k g/m2 MEDK[facility]UDIA ([facility] [place] body weight 142 [lb_av] 142 [lb_av] MEDEN T ([facility] Body weight 210.00 [lb_av] 210.00 [lb_av] MEDEN T ([facility] Body height 66 [in_i] 66 [in_i] [facility] ([facility] 5'6" Respiratory rate 14 /min 14 /min [facility] ( [facility] Heart rate 76 /min 76 /min [facility] ([facility] Body temperature 98.3 [degF] 98.3 [degF] [facility] ([facility] Diastolic blood pressure 80 mm[Hg] 80 mm[Hg] [facility] ([facility] Systolic blood pressure 124 mm[Hg] 124 mm[Hg] M EDENT ([facility] Oxygen saturation in Arterial blood by Pulse oximetry 99 % 99 % [facility] ([facility] Body mass index (BMI) [Ratio] 32.8 kg/m2 32.8 k g/m2 [facility] ([facility] [place] body weight 142 [lb_av] 142 [lb_av] MEDEN T ([facility] Body weight 203.00 [lb_av] 203.00 [lb_av] MEDEN T ([facility] Body height 66 [in_i] 66 [in_i] MED[facility] ([facility] 5'6" Respiratory rate 16 /min 16 /min [facility] ( [facility] Heart rate 92 /min 92 /min [facility] ([facility] Body temperature 98.0 [degF] 98.0 [degF] [facility] ([facility] Diastolic blood pressure 88 mm[Hg] 88 mm[Hg] [facility] ([facility] Systolic blood pressure 130 mm[Hg] 130 mm[Hg] M EDENT ([facility] Oxygen saturation in Arterial blood by Pulse oximetry 97 % 97 % [facility] ([facility] Body mass index (BMI) [Ratio] 32.2 kg/m2 32.2 k g/m2 MEDKLAUDIA ([facility] Body weight 199.38 [lb_av] 199.38 [lb_av] ANTHONYEN T ([facility] Body height 66 [in_i] 66 [in_i] MEDKLAUDIA ([facility] 5'6" Respiratory rate 16 /min 16 /min ROSA ( [facility] Heart rate 94 /min 94 /min ROSA ([facility] Body temperature 98.7 [degF] 98.7 [degF] ROSA ([facility] Diastolic blood pressure 84 mm[Hg] 84 mm[Hg] ROSA ([facility] Systolic blood pressure 114 mm[Hg] 114 mm[Hg] Pedro ARMSTRONG ([facility]
--- OUTSIDE RECORDS SUMMARY | 2020-06-30 01:39 | CCD | Continuity of Care Document ---
Author Sy Conway M.D. Organization Unknown Address [address] [place] [id number] Phone [phone] Problems Active Problems Provider Date Allergic rhinitis [...] each nares every day Unknown Saline Nasal Shannon 0.65% Solution 2 spray each nostril twice a day OTC Unknown 0 000 Immunizations Description No Information Available Vital Signs Date Vital Result Comment 05/25/2020 1:47pm BP Systolic 124 mmHg BP Diastolic 80 mmHg Body Temperature 98.3 F Heart Rate 76 /min Respiratory Rate 14 /min Height 66 inches 5'6" Weight 210.00 lb Dahinda Body Weight 142 lb BMI (Body Mass Index) 33.9 kg/m2 O2 % BldC Oximetry 98 % 10/02/2019 11:37am BP Systolic 130 mmHg BP Diastolic 88 mmHg Body Temperature 98.0 F Heart Rate 92 /min Respiratory Rate 16 /min Height 66 inches 5'6" Weight 203.00 lb Dahinda Body Weight 142 lb BMI (Body Mass [...] Provider Dx Diagnosis Office Visit 05/25/2020 2:00p [place] [facility] Syed Saunders M. D. Z00.00 Encntr [...] 1:00 pm - Syed Saunders M.D. at [facility] Functional Status Description No Information Available Mental Status Description No Information Available Referrals Description No Information Available
--- OUTSIDE RECORDS SUMMARY | 2020-06-30 02:29 | CCD ---
Author Author [facility] Organization [facility] Address Unknown Phone Unavailable Care Team Providers Care Electronic Prepress Operator Name Role Phone OLIVERA, QUINTON REFUGIO RPA-C [...] Unavailable Unavailable Herve YUN MD Unavailable Unavailable eHrve YUN MD Unavailable Unavailable Herve YUN MD Unavailable Unavailable Herve YUN MD Unavailable Unavailable Herve UYN MD Unavailable Unavailable Herve YUN MD Unavailable [...] Unavailable Enedina Meyer MD Unavailable Unavailable Enedina Meeyr MD Unavailable Unavailable Enedina Meyer MD Unavailable [...] Unavailable Unavailable Enedina Meyer MD Unavailable Unavailable Enednia Meyer MD Unavailable Unavailable Enedina Meyer MD Unavailable Unavailable Enedina Meyer MD Unavailable Unavailable Enedina Meyer MD Unavailable Unavailable Enedina Meyer MD Unavailable Unavailable Enedina Meyer MD Unavailable Unavailable Enedina Meyer MD Unavailable Unavailable Enedina Meyer MD Unavailable Unavailable Enedina Meyer MD Unavailable Unavailable Enedina Meyer MD Unavailable Unavailable Enedina Meyer MD Unavailable Unavailable Enedina Meyer MD Unavailable Unavailable Verbeck Jr, Major Raad PA Unavailable Unavailable Verbeck Jr, Major Raad PA Unavailable Unavailable Verbeck Jr, Major Raad PA Unavailable Unavailable Verbeck Jr, Major Raad PA Unavailable Unavailable Verbeck Jr, Rey Raad PA Unavailable Unavailable Verbeck Jr, Major Raad PA Unavailable Unavailable Verbeck Jr, Major Raad PA Unavailable Unavailable Verbeck Jr, Major Raad PA Unavailable Unavailable Verbeck Jr, Major Raad PA Unavailable Unavailable Verbeck Jr, Major Raad PA Unavailable Unavailable Verbeck Jr, Major Raad PA Unavailable Unavailable Verbeck Jr, Major Raad PA Unavailable Unavailable Verbeck Jr, Major Raad PA Unavailable Unavailable Verbeck Jr, Rey Raad PA Unavailable Unavailable Verbeck Jr, Major Raad PA Unavailable Unavailable Verbeck Jr, Rey Raad PA Unavailable Unavailable Verbeck Jr, Rey Raad PA Unavailable Unavailable Verbeck Jr, Rey Raad PA Unavailable Unavailable Verbeck Jr, Major Raad PA Unavailable Unavailable Verbeck Jr, Major Raad PA Unavailable Unavailable Verbeck Jr, Rey Raad PA Unavailable Unavailable Verbeck Jr, Major Raad PA Unavailable Unavailable Verbeck Jr, Major Raad PA Unavailable Unavailable Verbeck Jr, Major Raad PA Unavailable Unavailable Verbeck Jr, Major Raad PA Unavailable Unavailable Verbeck Jr, Major Raad PA Unavailable Unavailable Verbeck Jr, Major Raad PA Unavailable Unavailable Verbeck Jr, Major Raad PA Unavailable Unavailable Verbeck Jr, Major Raad PA Unavailable Unavailable Verbeck Jr, Major Raad PA Unavailable Unavailable Verbeck Jr, Major Raad PA Unavailable Unavailable Verbeck Jr, Major Raad PA Unavailable Unavailable Verbeck Jr, Major Raad PA Unavailable Unavailable Verbeck Jr, Major Raad PA Unavailable Unavailable Re-disclosure Warning The [...] is protected by Article 27-F of the [place] State Public Health law. If you continue you may have access to information: Regarding HIV / AIDS; Provided by facilities licensed or operated by the [facility] Office of Mental Health; or Provided by the [facility] Office for People With Developmental Disabilities. If such information is present, then the following [facility] mandated warning applies: This information has been [...] law may result in a fine or long-term sentence or both. A general authorization for the release of medical or other information is NOT sufficient authorization for further disc losure. Allergies and Adverse Reactions Type Description Substance Reaction Status Data Source(s ) Allergy to substance Allergy to substance Allergy to substance [facility] ([facility]) Allergy to substance Allergy to substance Allergy to substance [facility] ([facility]) Allergy to substance Allergy to substance Allergy to substance [facility] ([facility]) Family History Family Member Name Family Member Gender Family Member Status Date o f Status Description Data Source(s) Unknown Unknown Problem [facility] ([facility]) Unknown Unknown Problem MED[facility] ([facility]) mother/father Encounters Encounter Providers Location Date Indications Data Source(s ) Outpatient Attender: SYED YUN MD [place] [facility] 01:00:00 PM EST MED[facility] ([facility] Refugio Olivera RPA-C: [address], [place] [address], Ph. Attender: REFUGIO SCHULTZ [facility] Medical 03/30/2020 12:00:00 AM EST J[facility]ITA ([facility]) TORY McmahanC: [address], [place] [address], Ph. Attender: REFUGIO SCHULTZ [facility] Medical 03/30/2020 12:00:00 AM EST JESUSITA ([facility]) Refugio Olivera RPA-C: [address], [place] [address], Ph. Attender: REFUGIO SCHULTZ [facility] Medical 03/16/2020 12:00:00 AM EST J[facility]USITA ([facility]) Refugio Olivera, RPA-C: [address], [place] [address], Ph. Attender: REFUGIO OLIVERA RPA-C [facility] Medical 03/16/2020 12:00:00 AM EST J[facility]USITA ([facility]) Refugio Olivera RPA-C: [address], [place] [address], Ph. Attender: REFUGIO OLIVERA RPA-C [facility] Medical 03/16/2020 12:00:00 AM EST JESUSITA ([facility]) Refugio Olivera RPA-C: [address], [place] [address], Ph. Attender: REFUGIO OLIVERA RPA-C [facility] Medical 03/02/2020 12:00:00 AM EDT JESUSITA ([facility]) Refugio Olivera RPA-C: [address], [place] [address], Ph. Attender: REFUGIO OLIVERA RPA-C [facility] Medical 03/02/2020 12:00:00 AM EDT JESUSITA ([facility]) Refugio Olivera, RPA-C: [address], [place] [address], Ph. Attender: REFUGIO OLIVERA RPA-C [facility] Medical 03/02/2020 12:00:00 AM EDT JESUSITA ([facility]) Outpatient Attender: Syed Meyer MD CT 02/18/2020 02:59:[address] [facility] Outpatient Attender: Syed Meyer MD CT 01/31/2020 05:06:[address] [facility] Outpatient Attender: Syed Meyer MD CT 01/31/2020 10:20:[address] [facility] Outpatient Attender: Syed Meyer MD CT 01/31/2020 10:20:[address] [facility] Outpatient Attender: Vladimir SCHILLING [place] [facility] 11:30:00 AM EDT MEDENT ([facility] Outpatient Attender: Raad Mays Jr [place] [facility] 03:00:00 PM EST MEDENT ([facility] Medications Medication Brand Name Start Date Product Form Dose Route Admi nistrative Instructions Pharmacy Instructions Status Indications Reaction Description Data Source(s) Cefuroxime 500 MG Oral Tablet Cefuroxime Axetil 05/07/2019 12:00:00 A M EST ORAL completed MEDENT ([facility] Azelastine HCL (Nasal) Azelastine HCL (Nasal) 05/07/2019 12:00:[address] active MEDENT ([facility] Insurance Providers Payer name Policy type / Coverage type Policy ID Covered alliance party ID Covered alliance party's relationship to aparicio Policy Aparicio Plan Information [facility] [id number] SP [id number] [facility] [id number] SP [id number] LIF[employer] BENEFIT SOLUTIONS [id number] SP [id number] [facility] [id number] SP [id number] Lifetime Benefit Solution Commercial [id number] Self [id number] Lifetime Benefit Solution Commercial [id number] Self [id number] Lifetime Benefit Solution Commercial Self Problems, Conditions, and Diagnoses Code Display Name Description Problem Type Effective Dates Data Source(s) V01.79 Contact with and (suspected) exposure to other viral communicable diseases Contact with and (suspected) exposure to other viral communicable diseases 01/31/2020 10:19:[address] [facility] Results ID Date Data Source [id number] 05/25/2020 02:06:00 PM EST MEDENT ([facility] Name Value Range Interpretation Code Description Data Annamaria rce(s) Supporting Document(s) Cholesterol [Mass/volume] in Serum or Plasma 189 mg/dL 100-199 MEDENT ([facility] Triglyceride [Mass/volume] in Serum or Plasma 288 mg/dL 0-149 Above high normal [facility] ([facility] Cholesterol in HDL [Mass/volume] in Serum or Plasma 32 mg/dL Below low normal [facility] ([facility] Laboratory test finding (navigational concept) 50 mg/dL 5-40 Above high normal MED[facility] ([facility] Laboratory test finding (navigational concept) 107 mg/dL 0-99 Above high normal MED[facility] ([facility] Comment: Laboratory test result MED[facility] ([facility] ID Date Data Source [id number] 05/25/2020 02:06:00 PM EST MEDENT ([facility] Name Value Range Interpretation Code Description Data Annamaria rce(s) Supporting Document(s) Glucose [Mass/volume] in Serum or Plasma 91 mg/dL 65-99 [facility] ([facility] BUN 13 mg/dL 6-20 MED[facility] ([facility] Creatinine [Mass/volume] in Serum or Plasma 1.07 mg/dL 0.76-1.27 [facility] ([facility] eGFR If NonAfricn Am 90 mL/min/1.73 MED[facility] ([facility] eGFR If Africn Am 104 mL/min/1.73 ME DENT ([facility] Sodium [Moles/volume] in Serum or Plasma 143 mmol/L 134-144 [facility] ([facility] Urea nitrogen/Creatinine [Mass Ratio] in Serum or Plasma 12 9 -20 [facility] ([facility] Potassium [Moles/volume] in Serum or Plasma 4.5 mmol/L 3.5-5.2 [facility] ([facility] Chloride [Moles/volume] in Serum or Plasma 106 mmol/L 96-106 MED[facility] ([facility] Calcium [Mass/volume] in Serum or Plasma 9.9 mg/dL 8.7-10.2 [facility] ([facility] Carbon dioxide, total [Moles/volume] in Serum or Plasma 23 mmol/L 20 -29 [facility] ([facility] Protein [Mass/volume] in Serum or Plasma 7.2 g/dL 6.0-8.5 [facility] ([facility] Globulin [Mass/volume] in Serum by calculation 2.4 g/dL 1.5-4.5 [facility] ([facility] Albumin [Mass/volume] in Serum or Plasma 4.8 g/dL 4.0-5.0 MED[facility] ([facility] Albumin/Globulin [Mass Ratio] in Serum or Plasma 2.0 1.2-2.2 MED[facility] ([facility] Alkaline phosphatase [Enzymatic activity/volume] in Serum or Plasma 73 IU/L 39-117 [facility] ([facility] Bilirubin.total [Mass/volume] in Serum or Plasma 0.5 mg/dL 0.0-1.2 [facility] ([facility] Aspartate aminotransferase [Enzymatic activity/volume] in Serum or Plasma 52 IU/L 0-40 Above high normal [facility] ([facility] Alanine aminotransferase [Enzymatic activity/volume] i n Serum or Plasma 119 IU/L 0-44 Above high normal [facility] ([facility] ID Date Data Source [id number] 03/30/2020 02:00:00 PM EST JESUSITA ([facility]) Name Value Range Interpretation Code Description Data Annamaria rce(s) Supporting Document(s) SARS-CoV-2 (COVID-19) RNA [Presence] in Respiratory specimen by ALECIA with probe detection not detected not detected normal Sars Cov 2 RNA LOMITA ([facility]) ID Date Data Source [id number] 03/16/2020 02:00:00 PM EST JESUSITA ([facility]) Name Value Range Interpretation Code Description Data Annamaria rce(s) Supporting Document(s) SARS-CoV-2 (COVID-19) RNA [Presence] in Respiratory specimen by ALECIA with probe detection not detected not detected normal Sars Cov 2 RNA LOM[facility] ([facility]) ID Date Data Source [id number] 03/16/2020 02:00:00 PM EST L[facility] ([facility]) Name Value Range Interpretation Code Description Data Annamaria rce(s) Supporting Document(s) SARS coronavirus 2 RNA [Presence] in Res piratory specimen by ALECIA with probe detection not detected not detected normal Sars Cov 2 RNA [facility]OM[facility] ([facility]) ID Date Data Source [id number] 03/16/2020 02:00:00 PM EST JESUSITA ([facility]) Name Value Range Interpretation Code Description Data Annamaria rce(s) Supporting Document(s) SARS coronavirus 2 RNA [Presence] in Res piratory specimen by ALECIA with probe detection not detected not detected normal Sars Cov 2 RNA [facility]) ID Date Data Source [id number] 03/02/2020 02:10:00 PM EDT [facility]) Name Value Range Interpretation Code Description Data Annamaria rce(s) Supporting Document(s) SARS-CoV-2 (COVID-19) RNA [Presence] in Respiratory specimen by ALECIA with probe detection not detected not detected normal Sars Cov 2 RNA [facility]) ID Date Data Source [id number] 03/02/2020 02:10:00 PM EDT [facility]) Name Value Range Interpretation Code Description Data Annamaria rce(s) Supporting Document(s) SARS coronavirus 2 RNA [Presence] in Res piratory specimen by ALECIA with probe detection not detected not detected normal Sars Cov 2 RNA JESUSITA ([facility]) ID Date Data Source [id number] 03/02/2020 02:10:00 PM EDT [facility]) Name Value Range Interpretation Code Description Data Annamaria rce(s) Supporting Document(s) SARS coronavirus 2 RNA [Presence] in Res piratory specimen by ALECIA with probe detection not detected not detected normal Sars Cov 2 RNA JESUSITA ([facility]) ID Date Data Source [id number] 03/02/2020 02:10:00 PM EDT [facility] Name Value Range Interpretation Code Description Data Annamaria rce(s) Supporting Document(s) SARS-COV-2 RNA RESP QL ALECIA+PROBE [facility] This lab was ordered by [facility] and reported by [facility] [place]. ID Date Data Source [id number] 02/17/2020 02:15:00 PM EDT [facility] In-House Lab TestsDate/Time Collect ed: February 17, 2020 2:15 PMDate/Time Received: February 17, 2020 2:15 PMComments: COVID-19 testing done in office taken from the right nostril without difficulty. Patient tolerated it well. Serene Jett MA, February 17, 2020 2:05 PMAssessment & Plan Orders:Specimen Handling [[id number]] Name Value Range Interpretation Code Description Data Annamaria rce(s) Supporting Document(s) ID Date Data Source [id number] 02/17/2020 12:00:00 AM EDT [facility] Name Value Range Interpretation Code Description Data Annamaria rce(s) Supporting Document(s) SARS-COV-2 RNA RESP QL ALECIA+PROBE [facility] This lab was ordered by [facility] and reported by [facility] [place]. ID Date Data Source [id number] 01/31/2020 02:00:00 PM EDT [facility] Name Value Range Interpretation Code Description Data Annamaria rce(s) Supporting Document(s) SARS-COV-2 RNA RESP QL ALECIA+PROBE [facility] This lab was ordered by [facility] and reported by [facility]. ID Date Data Source [id number] 10/03/2019 03:55:00 PM EDT [facility] Name Value Range Interpretation Code Description Data Annamaria rce(s) Supporting Document(s) SARS CORONAVIRUS 2 RNA [facility] This lab was ordered by [facility] and reported by [facility]. ID Date Data Source [id number] 10/03/2019 02:24:00 PM EDT [facility] Name Value Range Interpretation Code Description Data Annamaria rce(s) Supporting Document(s) Laboratory test finding (navigational concept) Laboratory test result [facility] ([facility] Testing was performed using the stephania(R) SARS-CoV-2 test. This test was developed and its performance characteristics determined by [facility]. This test has not been FDA cleared [...] detected) result in this assay. Performed at: [facility] [id number] Painter Apprentice: Hansa Mccann MD, Phone: [phone] Not Detected Procedure Vital Signs ID Date Data Source [id number] Name Value Range Interpretation Code Description Data Source(s) Oxygen saturation in Arterial blood by Pulse oximetry 98 % 98 % MEDKLAUDIA ([facility] Body mass index (BMI) [Ratio] 33.9 kg/m2 33.9 k g/m2 [facility] [place] body weight 142 [lb_av] 142 [lb_av] MEDEN T ([facility] Body weight 210.00 [lb_av] 210.00 [lb_av] MEDEN T ([facility] Body height 66 [in_i] 66 [in_i] [facility] 5'6" Respiratory rate 14 [...] k g/m2 [facility] ([facility] [place] body weight 142 [lb_av] 142 [lb_av] MEDEN T ([facility] Body weight 203.00 [lb_av] 203.00 [lb_av] MEDEN T ([facility] Body height 66 [in_i] 66 [in_i] MEDENT ([facility] 5'6" Respiratory rate 16 [...] (BMI) [Ratio] 32.2 kg/m2 32.2 k g/m2 ANTHONYENT ([facility] Body weight 199.38 [lb_av] 199.38 [lb_av] ANTHONYEN T ([facility] Body height 66 [in_i] 66 [in_i] MEDENT ([facility] 5'6" Respiratory rate 16 /min 16 /min ROSA ( [facility] Heart rate 94 /min 94 /min ROSA ([facility] Body temperature 98.7 [degF] 98.7 [degF] ROSA ([facility] Diastolic blood pressure 84 mm[Hg] 84 mm[Hg] ROSA ([facility] Systolic blood pressure 114 mm[Hg] 114 mm[Hg] Pedro ARMSTRONG ([facility]
[2020-06-30] MEDS ORDERED: IBUP80TA PO (03:11)
[2020-06-30] MEDS ORDERED: METH-1164 PO ×2 (03:11→03:12)
[2020-06-30] MEDS ORDERED: IBUPROFEN 800 MG TAB PO ONE (03:15)
[2020-06-30 03:23] VITALS: BP 121/71
== END 2020-06-30 03:26 | disposition home or self-care (01) ==
LOC: M ED 01:30
DX: S46.812A Strain of other muscles, fascia and tendons at shoulder and upper arm level, left arm, initial encounter (principal); X50.0XXA Overexertion from strenuous movement or load, initial encounter; Y92.9 Unspecified place or not applicable; Y93.9 Activity, unspecified; Y99.9 Unspecified external cause status

== ENCOUNTER 2025-01-31 23:31 | Emergency (ER) | payer OTHER ==
[~2025-01-31] VITALS: Ht 167.6 cm; Wt 99.8 kg
[~2025-01-31 23:31] MED LIST changes: +IBUP80TA PO; +METH-1164 PO
[2025-02-01 01:30] VITALS: BP 147/89; TEMP 97.8; O2SAT 98
[2025-02-01] MEDS: TETANUS/DIPHTH/ACEL. PERTUSSIS 0.5 ML SYR IM ONE (05:18)
== END 2025-02-01 05:21 | disposition home or self-care (01) ==
LOC: M ED 23:31
DX: S00.81XA Abrasion of other part of head, initial encounter (principal); S01.512A Laceration without foreign body of oral cavity, initial encounter; W22.8XXA Striking against or struck by other objects, initial encounter; F10.10 Alcohol abuse, uncomplicated; Y92.89 Other specified places as the place of occurrence of the external cause; Y93.89 Activity, other specified; Y99.0 Civilian activity done for income or pay; Z79.1 Long term (current) use of non-steroidal anti-inflammatories (NSAID); Z79.899 Other long term (current) drug therapy; Z23 Encounter for immunization